=== PATIENT | female | born 1980 | race Caucasian/White ===

== ENCOUNTER 2017-10-25 19:23 | Inpatient (IN) | payer BC ==
[~2017-10-25] VITALS: Ht 170.2 cm; Wt 97.1 kg
[2017-10-25] MEDS ORDERED: LACTATED RINGERS 1000ML 1,000 ML IV PRN (19:46)
[2017-10-25 20:09] LABS: HEMATOCRIT 39.4 % (36-48); MEAN CORPUSCULAR HEMOGLOBIN 25.3 pg (27.0-33.0); MEAN CORPUSCULAR HGB CONC 33.3 g/dL (32.0-36.0); MEAN CORPUSCULAR VOLUME 75.8 fL (79-99); NUCLEATED RED BLOOD CELLS 0.1 % (0.0-0.19); PLATELET COUNT (AUTO) 265 K/uL (130-400); RED CELL DISTRIBUTION WIDTH 16.1 % (11.0-15.5); WHITE BLOOD COUNT (AUTO) 11.3 K/uL (4.8-10.8)
[2017-10-25] MEDS ORDERED: BUTORPHANOL TARTRATE 2 MG/ML IVP PRN (20:30)
[2017-10-25] MEDS ORDERED: OXYTOCIN 10 USP UNITS/ML 20 UNIT in LACTATED RINGERS 1000ML 1,000 ML IV SCH (20:30)
[2017-10-25] MEDS ORDERED: LACTATED RINGERS 1000ML 1,000 ML IV ONE (20:38)
[2017-10-25] MEDS ORDERED: OXYTOCIN 10 USP UNITS/ML ONE (20:38)
[2017-10-25] MEDS: OXYTOCIN-LR 20 UNITS/1000 ML 1,000 ML IV SCH (20:43)
[2017-10-25] MEDS ORDERED: LIDOCAINE HCL 1% 20 ML VIAL ONE (23:15)
[2017-10-26] VITALS (7 sets, daily range): BP systolic 102–132; BP diastolic 55–82
[2017-10-26] MEDS ORDERED: ACETAMINOPHEN 325 MG TAB PO PRN
[2017-10-26] MEDS ORDERED: LANOLIN 30GM OINTMENT TP PRN
[2017-10-26] MEDS ORDERED: ACETAMINOPHEN-CODEINE 300/30MG TAB PO PRN
[2017-10-26] MEDS ORDERED: MEASLES/MUMPS/RUBELLA VACCINE, LIVE 0.5 ML/VIAL SQ PRN
[2017-10-26] MEDS ORDERED: DIPH,PERTUSS(ACELL),TET VAC/PF 0.5 ML VIAL IM PRN
[2017-10-26] MEDS ORDERED: WITCH HAZEL 1 PAD TP PRN
[2017-10-26] MEDS ORDERED: BENZOCAINE/LANOLIN/ALOE VERA 60 ML AEROSOL TP PRN
[2017-10-26] MEDS ORDERED: IBUPROFEN 600 MG TABLET ONE (00:37)
[2017-10-26] MEDS ORDERED: LACTATED RINGERS 1000ML 1,000 ML IV ONE (01:10)
[2017-10-26] MEDS ORDERED: OXYTOCIN 10 USP UNITS/ML ONE (01:10)
[2017-10-26] MEDS: OXYTOCIN-LR 20 UNITS/1000 ML 1,000 ML IV SCH (01:16)
[2017-10-26] MEDS ORDERED: BENZOCAINE/LANOLIN/ALOE VERA 60 ML AEROSOL TP ONE (01:34)
[2017-10-26] MEDS ORDERED: METF500T6 PO (07:33)
[2017-10-26] MEDS ORDERED: PNV1TABL77 PO (07:36)
[2017-10-26] MEDS: DOCUSATE SODIUM 100 MG CAP PO SCH ×2 (09:19→21:42)
[2017-10-26] MEDS: IBUPROFEN 600 MG TABLET PO PRN ×2 (09:20→17:01)
[2017-10-27 03:28] VITALS: BP 123/76
[2017-10-27] MEDS: IBUPROFEN 600 MG TABLET PO PRN (05:11)
[2017-10-27 06:19] LABS: HEPATITIS Bs ANTIGEN SCREEN P Negative (Negative)
[2017-10-27 08:07] VITALS: BP 125/71
[2017-10-27] MEDS: DOCUSATE SODIUM 100 MG CAP PO SCH (09:25)
[2017-10-27 12:07] VITALS: BP 117/77
== END 2017-10-27 15:35 | disposition home or self-care (01) | DRG 775 ==
LOC: LDH 19:23 → OBSVTOIN 19:46 → WSH 10-26 02:10
PROVIDERS: ADMIT Obstetrics & Gynecology; ATTEND Obstetrics & Gynecology
PROC: 10E0XZZ Delivery of Products of Conception, External Approach (ICD-10-PCS; principal; 2017-10-25)
PROC: 0KQM0ZZ Repair Perineum Muscle, Open Approach (ICD-10-PCS; 2017-10-25)
PROC: 30233S1 Transfusion of Nonautologous Globulin into Peripheral Vein, Percutaneous Approach (ICD-10-PCS; 2017-10-25)
DX: O70.1 Second degree perineal laceration during delivery (principal); Z37.0 Single live birth; Z3A.39 39 weeks gestation of pregnancy
CPT/HCPCS: 36415; 83033; 85027; 86592; 86850; 86900; 86901; 87340; G0378; J0595; J2590; J2791; J7120

== ENCOUNTER 2018-06-23 07:00 | Day surgery (SDC) | payer BC ==
[2018-06-22 13:55] VITALS: BP 117/65
[2018-06-22 14:05] LABS: BASOPHILS % (AUTO) 0.7 % (0.0-5.0); EOSINOPHILS % (AUTO) 5.1 % (0.0-8.0); HEMATOCRIT 35.9 % (36-48); LYMPHOCYTES % (AUTO) 29.3 % (21.0-51.0); MEAN CORPUSCULAR HGB CONC 33.6 g/dL (32.0-36.0); MEAN CORPUSCULAR VOLUME 77.4 fL (79-99); MONOCYTES % (AUTO) 7.1 % (3.0-13.0); NEUTROPHILS % (AUTO) 57.8 % (40.0-77.0); PLATELET COUNT (AUTO) 322 K/uL (130-400); RED BLOOD CELL COUNT(AUTO) 4.64 MIL/uL (4.00-5.50); WHITE BLOOD COUNT (AUTO) 8.1 K/uL (4.8-10.8)
[2018-06-22] MEDS: CEFAZOLIN SODIUM 1 GM VIAL IVP SCH (16:00)
[~2018-06-23] VITALS: Ht 170.2 cm; Wt 84.0 kg
[2018-06-23] VITALS (11 sets, daily range): BP systolic 115–138; BP diastolic 60–72
[~2018-06-23 07:00] MED LIST: CALDOLOR 800MG+NS 250ML 250 ML IV SCH; LACTATED RINGERS 1000ML 1,000 ML IV SCH; METF-444 PO
[2018-06-23] MEDS ORDERED: BUPIVACAINE/PF 0.25% 50ML VIAL IJ ONE (07:18)
[2018-06-23] MEDS ORDERED: ONDANSETRON HCL 4 MG/2 ML VIAL ONE (08:30)
[2018-06-23] MEDS ORDERED: SUCCINYLCHOLINE 200MG/10ML SYR ONE (08:30)
[2018-06-23] MEDS ORDERED: DEXAMETHASONE SOD PHOSPHATE 10MG/ML 1ML VIAL ONE (08:30)
[2018-06-23] MEDS ORDERED: LIDOCAINE PF 2% 5ML ABBOJECT ONE (08:30)
[2018-06-23] MEDS ORDERED: FENTANYL CITRATE PF 50 MCG/1 ML 2ML VIAL ONE (08:31)
[2018-06-23] MEDS ORDERED: NEOSTIGMINE 5MG/5ML SYR IV ONE (08:31)
[2018-06-23] MEDS ORDERED: PROPOFOL 10 MG/ML 20ML VIAL IV ONE (08:31)
[2018-06-23] MEDS ORDERED: ROCURONIUM 10MG/1ML SYR 10 MG/ML ML ONE (08:31)
[2018-06-23] MEDS ORDERED: MIDAZOLAM HCL 1 MG/ML 2ML VIAL ONE (08:31)
[2018-06-23] MEDS: CEFAZOLIN SODIUM 1 GM VIAL IVP SCH (09:00)
[2018-06-23] MEDS ORDERED: GLYCOPYRROLATE 1 MG/5 ML SYRINGE ONE (09:11)
== END 2018-06-23 11:40 | disposition home or self-care (01) ==
LOC: DAH 07:00
PROVIDERS: ATTEND Obstetrics & Gynecology
DX: Z30.2 Encounter for sterilization (principal); E11.9 Type 2 diabetes mellitus without complications; I10 Essential (primary) hypertension; Z98.890 Other specified postprocedural states
CPT/HCPCS: 36415; 58670; 84702; 85025; 86850; 86900; 86901; 96365; A4351; A4510; A4600; A4649; C1769 ×2; G0168; J0330; J0690; J1100; J1741; J2001; J2250; J2405; J2704; J2710; J3010; J3490 ×2; J7030; J7120